=== PATIENT | male | born 1965 | race Caucasian/White ===

== ENCOUNTER → 2023-12-22 09:24 | Outpatient (REF) | payer OTHER, SELFPAY | LOC: WDC 09:24 | PROVIDERS: ATTENDING PHYSICIAN Family Medicine; FAMILY PHYSICIAN Student in an Organized Health Care Education/Training Program | DX: M79.621 Pain in right upper arm (principal); N64.4 Mastodynia | CPT/HCPCS: 76642; 77062; 77066 ==

== ENCOUNTER 2024-02-11 17:34 | Emergency (ER) | payer OTHER, SELFPAY ==
[2024-02-11 17:42] VITALS: BP 135/88
[2024-02-11 19:25] VITALS: BMI 29.2
--- NOTE | 2024-02-11 19:33 | ED.GENMED ---
History of Present Illness
General
Chief Complaint: Chest Pain
Source: patient
Exam Limitations: none
Time Seen by Provider: 02/11/24 19:04
Travel History
Have you had any contact with someone who has COVID-19?: No
Do you have any symptoms of coronavirus? Fever > 100 degrees, chills, cough, shortness of breath, sore throat, loss of taste or smell, muscle aches, or headache?: No
History of Present Illness
History of Present Illness:
This is a 58 year old male that comes in with c/o right sided chest pain. States that he started Virta with is medically managed and is like Keto diet. States that he started this about 5 weeks ago. States that he noticed that he is having an
Irregular heart beat and his heart is just taking off. States that he did wear a Holter monitor and dropped it off yesterday at the [employer]. Sates that in the past couple of days he felt that he had increased right sided chest discomfort.
States that yesterday he was walking around in the store and his heart rate just took off. Today he started with the right sided chest pain and it moved up into the right neck and back. States that he does feel SOB with the Increased heart rate.
States that he also has a headache and some epigastric discomfort. Denies any fever, chills, abd pain, nausea, vomiting, diarrhea, dizziness, urinary burning.
Past History
Past History
ED Past Medical History: Cancer (Skin), GERD, HTN, Psychiatric (Anxiety), Other (Tachycardia on a beta shola, gout) and Other (DVT/Pulmonary embolus 1-1/2 years ago, recent B12 deficiency, BPH, Sleep apnea, DDD, Tremors right hand, TMJ)
ED Past Surgical History: Orthopedic (Right hammer toe) and Other (Anal stricture with sphincterotomy 1987, IVC fliter and then had removed, Hiatal hernia repaired, right eye surgery, ); Negative Cholecystectomy
Social History
Tobacco: Non-smoker
Alcohol: Occasional
Drug: None
Personal:
Living: with family
Employment: Employed
Family History
Family History: Other (Father with prostate cancer)
Review of Systems
Review of Systems
All Other Systems: ROS reviewed and negative except as documented in HPI and ROS
Constitutional: Reports no symptoms; Denies fever or chills
EENT: Reports no symptoms
Respiratory: Reports trouble breathing; Denies cough
Cardiac: Reports chest pain (right sided)
ABD/GI: Reports other (Epigastric discomfort); Denies abdominal pain, nausea, vomiting or diarrhea
: Reports no symptoms; Denies dysuria, frequency or urgency
Musculoskeletal: Reports no symptoms
Skin: Reports no symptoms
Neurological: Reports headache; Denies dizzy
Psychiatric: Reports no symptoms
Phy Exam
General Physical Exam
General Presentation: no apparent distress
General age: appears stated age
General Skin: warm and dry
General Habitus: normal
General Mental: alert
General Hydration: dry mucous membranes
ENT Exam
ENT Exam: TM's normal, pharynx normal and neck supple
Eye Exam
Eye Exam: EOMI
Cardiovascular Exam
Cardiovascular Exam: regular rate/rhythm, no edema, no murmur and normal peripheral pulses
Pulmonary Exam
Pulmonary Exam: lungs clear, no respiratory distress, no rales, chest non tender, no crackles, no rhonchi, no wheezing and no cough
Gastrointestinal Exam
Gastrointestinal Exam: normal bowel sounds, non tender, soft, no organomegaly, no pulsatile mass and non distended
Musculoskeletal Exam
Musculoskeletal Exam: full ROM and no edema
Skin Exam
Skin Exam: normal color, warm/dry, no rash and no petechia
Psychiatric Exam
Psychiatric Exam: normal mood/affect
Scores
Heart Score for Chest Pain Patients
STEMI patient?: Not applicable
Course
Orders/Labs/Results
Orders:
Orders
02/11/24 17:43
EKG [Electrocardiogram (*1)] Urgent
Reason for Study: Chest Pain
EKG- Treatment ONCE
02/11/24 19:33
CR Chest - 2 Views Urgent
Comment:
Reason For Exam: chest pain right sided, SOB
02/11/24 19:36
Comprehensive Metabolic Panel Urgent
D-Dimer Urgent
Troponin I Urgent
02/11/24 19:37
Complete Blood Count/With Diff Urgent
02/11/24 19:38
Pantoprazole [Protonix IV] 40 mg IV NOW STA
02/11/24 22:26
Troponin I Urgent
Abnormal Lab Results
02/11/24
19:36
Sodium 133 L mmol/L
(135-145)
02/11/24 19:37
02/11/24 19:36
Sodium slightly low. D-dimer <0.27, Troponin <0.012
Vital Signs
Initial and Last Documented VS:
Initial Vital Signs
Temp Pulse Resp BP Pulse Ox
98.4 F 91 18 135/88 98
02/11/24 17:42 02/11/24 17:42 02/11/24 17:42 02/11/24 17:42 02/11/24 17:42
Last Documented Vital Signs
Temp Pulse Resp BP Pulse Ox
98.4 F 79 18 126/71 95
02/11/24 17:42 02/11/24 22:00 02/11/24 22:00 02/11/24 22:00 02/11/24 22:00
MDM/Problems Addressed
Differential Diagnosis Includes:
PE, Costochondritis,
MDM/Problems Addressed:
This is a 58 year old male that comes in with multiple complaints. States that he has been having and irregular heart rate and right sided chest pain. Patient recently started on a medication that is medically followed called Otf to help with
weight loss. States that he felt his right sided chest pain increased today and went up into his neck.
Will get lab, Chest x-ray.
Back into see patient. Explained that his blood work shows that her Sodium is slightly low. His D-dimer is normal and patient is taking Eliquis. Both Troponin are negative. This maybe Costochondritis or anxiety. Patient to follow up with his
cloth bleaching range back tender. Patient to use Tylenol 1000mg every 6 hours for pain. Encouraged patient that he may want to do Weight watchers as this is the most normal diet to help loss weight and it healthy. Patient to return with any concerns.
Chronic conditions affecting care:
History of PE
Acute Exacerbation and/or Progression of Chronic Illness:
history of PE
*Radiology
Radiology exam reviewed: radiology read reviewed (Chest- No acute cardiopulmonary process)
*Pulse Oximetry
Patient hypoxic: no
*EKG
Interpreted by ED Provider?: Yes
Heart Rate: 67
Rate: normal
Rhythm: sinus
[place]: left axis deviation
Interval: normal interval
QRS Pattern: normal QRS
Ischemia: no ischemia
*[employer] Interpretation
Rate: normal
Heart Rate: 86
Rhythm: sinus
*Critical Care Note
Total Time (30-74mins, 75-104mins- exclusive of procedures): Not Applicable
ED Attending Note
-
Portions of this chart may have been created with voice recognition software.� Occasional wrong word or��sound alike� substitutions may have occurred due to the inherent limitations of voice recognition software.
Discharge Plan
Departure
Patient Disposition: Home (Routine Discharge)
Date of Disposition: 02/11/24
Time of Disposition: 23:04
Patient with high blood pressure during this ER visit?: No
Condition: Good
Covid-19: Not Applicable
Discharge Problem:
Right-sided chest pain
Instructions: Costochondritis (DC), Chest Pain PCP Follow Up
Prescriptions:
No Action
Eliquis 5 MG tablet
5 mg PO BID
metoprolol tartrate 25 MG tablet
25 mg PO BID
mometasone [Nasonex] 17 GM spray,non-aerosol
2 spray intranasal HS
armodafinil [Nuvigil] 150 MG tablet
150 mg PO DAILY
tamsulosin 0.4 MG capsule
0.4 mg PO DAILY
allopurinol 100 MG tablet
300 mg PO DAILY
Tums:
1,000 mg PO PRN PRN (Reason: acid reflux )
Metamucil Fiber Singles 1 PACKET powder in packet
1 packet PO BID
sucralfate [Carafate] 1 GM tablet
1 gm PO BID
colchicine 0.6 MG capsule
0.6 mg PO DAILY
cyanocobalamin (vitamin B-12) 1,000 MCG tablet
1,000 mcg PO DAILY
zinc gluconate 50 MG tablet
50 mg PO DAILY
docosahexaenoic acid-epa 1 CAP capsule
3 cap PO DAILY
Centrum Silver 1 EACH tablet
1 ea PO DAILY
calcium citrate-vitamin D3 [Citracal + D Maximum] 1 EACH tablet
1 ea PO BID
coenzyme Q10 50 MG tablet,chewable
100 mg PO DAILY
guaifenesin [Mucinex] 600 MG tablet extended release 12hr
600 mg PO DAILY
ascorbic acid (vitamin C) 500 MG capsule
500 mg PO BID
Cholecalciferol (Vitamin D3) [Vitamin D3] 50 MCG Capsule
50 mcg PO BID
D-Ribose
7 g PO DAILY
Daily Probiotic
2 cap PO BID
Essential Isabel[place]
4.7 g PO DAILY
Luiz Tart Gomes Capsule
1 cap PO BID
Humann Super Beets
5 g PO DAILY
Lectin Shield
2 cap PO BID
Total Restore
3 cap PO DAILY
Vital Reds Antioxidant Powder
3.8 g PO DAILY
acetaminophen 325 MG tablet
650 mg PO Q4HPRN PRN (Reason: mild pain) Qty: 1 0RF
ibuprofen 200 MG tablet
400 - 600 mg PO Q6HPRN PRN (Reason: moderate pain) Qty: 1 0RF
oxycodone 5 MG tablet
5 mg PO Q4HPRN PRN (Reason: breakthrough/severe pain) Qty: 15 0RF
famotidine 20 mg Tablet
20 mg PO DAILY
simethicone 80 mg Tablet,Chewable
50 mg PO ACHS
Referrals:
NONE,* [Active] -
Activity Restrictions/Additional Instructions:
As discussed, your blood work shows that your sodium is slightly low. Otherwise your labs are normal. Your D-dimer is negative and both Troponin are normal. Please follow up with the Family doctor for recheck. Please increases your water intake to
8-8oz glasses daily. You may use Tylenol 1000mg every 6 hours for pain. IF YOU HAVE INCREASED OR CHANGING PAIN, OR YOU HAVE ANY OTHER CONCERNS PLEASE RETURN TO THE EMERGENCY ROOM.
Interventions
Interventions:
*Risk Screen - Suicide Last Done: 02/11/24 19:25
*General Assessment Last Done: 02/11/24 19:25
*Neglect/Abuse Screening Last Done: 02/11/24 19:25
*ED COVID-19 Vaccine History Last Done: 02/11/24 19:25
ED- Cardiac Assessment Last Done: 02/11/24 19:25
Discharge Date and Time
Print Language: IRISH
[2024-02-11 19:34] VITALS: BP 135/70
[2024-02-11 19:41] LABS: % Basophils 1.1 % (0-2); % Eosinophils 3.2 % (0-6); % Immature Granulocytes 0.4 % (0-0.5); % Lymphocytes 30.1 % (20.5-51.1); % Monocytes 5.2 % (1.7-9.3); Absolute Basophils 0.1 10^3/uL (0-0.2); Absolute Eosinophils 0.2 10^3/uL (0-0.7); Absolute Lymphocytes 1.7 10^3/uL (1.2-3.4); Absolute Monocytes 0.3 10^3/uL (0.1-0.6); Absolute Neutrophils 3.4 10^3/uL (1.4-6.5); Hematocrit 46.1 % (39.0-52.0); Hemoglobin 16.3 g/dL (13.0-18.0); Mean Corp Hgb Conc. 35.4 g/dL (33.0-37.0); Mean Corpuscular Hgb 30.5 pg (27.0-31.0); Mean Corpuscular Volume 86.3 fL (80.0-94.0); Mean Platelet Volume 9.5 fL (7.4-10.4); Nucleated Red Blood Cells % 0 % (-); Platelet Count 196 10^3/uL (130-400); Red Blood Cell Count 5.34 10^6/uL (4.70-6.10); Red Cell Dist. Width 13.5 % (11.5-14.5); White Blood Cell Count 5.6 10^3/uL (4.8-10.8)
[2024-02-11 19:56] LABS: ALT (SGPT) 23 U/L (0-50); AST (SGOT) 25 U/L (17-59); Albumin 4.8 g/dl (3.5-5.0); Alkaline Phosphatase 60 U/L (38-126); Blood Urea Nitrogen 17 mg/dl (9-20); Calcium 10.1 mg/dl (8.4-10.2); Carbon Dioxide 22 mmol/L (22-30); Chloride 102 mmol/L (98-107); Estimated Creatinine Clearance 98 ml/min; Glucose 88 mg/dl (70-99); Potassium 4.1 mmol/L (3.5-5.1); Sodium 133 mmol/L (135-145); Total Bilirubin 1.2 mg/dl (0.2-1.3); Total Protein 7.5 g/dl (6.3-8.2); eGFR > 60.00
[2024-02-11 19:59] LABS: D-Dimer < 0.27 ug/mlFEU (0.00-0.50)
[2024-02-11 20:00] VITALS: BP 135/69
[2024-02-11] MEDS: PROTONIX IV 40 MG IV (20:05)
[2024-02-11 20:08] LABS: Troponin I < 0.012 ng/ml
[2024-02-11 21:00] VITALS: BP 125/75
[2024-02-11 22:00] VITALS: BP 126/71
[2024-02-11 22:56] LABS: Troponin I < 0.012 ng/ml
[2024-02-11 23:00] VITALS: BP 123/71
== END 2024-02-11 23:18 | disposition home or self-care (01) ==
LOC: EMR 17:34
PROVIDERS: Clinical Nurse Specialist Family Health; EMERGENCY PHYSICIAN Emergency Medicine; FAMILY PHYSICIAN Student in an Organized Health Care Education/Training Program
DX: R07.89 Other chest pain (principal)
CPT/HCPCS: 99285; 96374; 71046; 80053; 84484; 85025; 85379; 93005

== ENCOUNTER → 2024-04-13 07:47 | Outpatient (REF) | payer OTHER, SELFPAY | LOC: RAD 07:47 | PROVIDERS: ATTENDING PHYSICIAN Nurse Practitioner Family; FAMILY PHYSICIAN Student in an Organized Health Care Education/Training Program | DX: R07.1 Chest pain on breathing (principal) | CPT/HCPCS: 71275; Q9967 ==

== ENCOUNTER → 2024-06-02 22:00 | Emergency (ER) | payer OTHER, SELFPAY ==
[2024-06-02 22:08] VITALS: BP 131/78
[2024-06-02 22:32] VITALS: BP 131/73
--- NOTE | 2024-06-02 22:57 | ED.GENMED ---
History of Present Illness
General
Chief Complaint: Cold/Flu/URI Symptoms
Source: patient
Exam Limitations: none
Time Seen by Provider: 06/02/24 22:27
Nursing documentation reviewed up to this point in time: agreed with
History of Present Illness
History of Present Illness:
59-year-old male with history of GERD, HTN, hypercoagulable state with history of DVT and PE on Eliquis, anxiety/depression, presents stating 'I may be early stages of COVID.' States 2 evenings ago he developed a 'chest cold' and nasal congestion,
sore throat. He has had paroxysms of cough. He tested COVID-negative at home yesterday and again earlier today. He denies fever, chills, N/V/D. He denies abdominal pain. He has had intermittent chest pains for the past 2 days. The chest pains
are sharp and stabbing initially in the right side of his chest but today he felt some in the left side of his chest. No known sick contacts. He was in [place] 1 week ago.
He saw his PCP yesterday and was told to take Robitussin.
Past History
Past History
ED Past Medical History: Cancer (Skin), GERD, HTN, Psychiatric (Anxiety/depression), Other (Tachycardia on a beta shola, gout) and Other (DVT/Pulmonary embolus 1-1/2 years ago, recent B12 deficiency, BPH, Sleep apnea, DDD, Tremors right hand, TMJ)
ED Past Surgical History: Orthopedic (Right hammer toe) and Other (Anal stricture with sphincterotomy 1987, IVC fliter and then had removed, Hiatal hernia repaired, right eye surgery, ); Negative Cholecystectomy
Social History
Tobacco: Non-smoker
Alcohol: Occasional
Drug: None
Personal:
Living: with family
Employment: Employed
Family History
Family History: Other (Father with prostate cancer)
Review of Systems
Review of Systems
Allergies reviewed?: Yes
All Other Systems: ROS reviewed and negative except as documented in HPI and ROS
Constitutional: Denies fever, fatigue or chills
EENT: Reports sore throat; Denies runny nose
Respiratory: Reports cough; Denies trouble breathing
Cardiac: Reports chest pain; Denies diaphoresis, palpitations or syncope
ABD/GI: Denies abdominal pain, nausea, vomiting or diarrhea
: Denies dysuria or difficulty voiding
Musculoskeletal: Reports no symptoms
Skin: Reports no symptoms
Neurological: Denies dizzy, headache, weakness or numbness
Phy Exam
Physical Exam
Physical Exam:
GENERAL: No acute distress. A&Ox3.
CONSTITUTIONAL: Afebrile.
EYES: PERRL, conjunctivae normal
Neck: Supple
ENMT: moist mucus membranes, Pharynx nl
RESPIRATORY: Regular respirations, nonlabored, lungs clear.
CARDIOVASCULAR: Regular rate and rhythm, no murmurs, no rubs.
GI: Soft, nontender, normal BS
MUSCULOSKELETAL: Moves with ease. Well perfused.
SKIN: Warm, dry, pink
PSYCH: Normal mood and affect. Well kept, interactive and appropriate
NEUROLOGIC: Awake, alert and oriented. No focal neurological deficits
Course
Orders/Labs/Results
Orders:
Orders
06/02/24 22:17
Electrocardiogram (*1) Urgent
Reason for Study: Chest Pain
Other Reason for Exam: chest congestion
EKG- Treatment ONCE
06/02/24 22:54
CR Chest - 2 Views Urgent
Comment:
Reason For Exam: chest pain
06/02/24 23:07
COVID-19 Antigen Urgent
Source: Nasal Swab
Complete Blood Count/With Diff Urgent
Comprehensive Metabolic Panel Urgent
Troponin I Urgent
Abnormal Lab Results
06/02/24
23:07
WBC 4.5 L 10^3/uL
(4.8-10.8)
Monocytes % 10.2 H %
(1.7-9.3)
Eosinophils % 9.5 H %
(0-6)
Chloride 108 H mmol/L
(98-107)
06/02/24 23:07
06/02/24 23:07
Vital Signs
Initial and Last Documented VS:
Initial Vital Signs
Temp Pulse Resp BP Pulse Ox
98.7 F 80 18 131/78 97
06/02/24 22:08 06/02/24 22:08 06/02/24 22:08 06/02/24 22:08 06/02/24 22:08
Last Documented Vital Signs
Temp Pulse Resp BP Pulse Ox
98.7 F 62 13 121/73 98
06/02/24 22:08 06/02/24 23:30 06/02/24 23:30 06/02/24 23:30 06/02/24 23:30
MDM/Problems Addressed
Differential Diagnosis Includes:
COVID, pneumonia, viral URI
MDM/Problems Addressed:
59-year-old male with history of GERD, HTN, hypercoagulable state with history of DVT and PE on Eliquis, anxiety/depression, presents stating 'I may be early stages of COVID.' States 2 evenings ago he developed a 'chest cold' and nasal congestion,
sore throat. He has had paroxysms of cough. He tested COVID-negative at home yesterday and again earlier today. He denies fever, chills, N/V/D. He denies abdominal pain. He has had intermittent chest pains for the past 2 days. The chest pains
are sharp and stabbing initially in the right side of his chest but today he felt some in the left side of his chest. No known sick contacts. He was in [place] 1 week ago.
He saw his PCP yesterday and was told to take Robitussin.
CBC with no clinically significant abnormality
CMP normal
COVID-negative
EKG: NSR, left axis deviation, no change
Chest xray: NAD, no change from previous
Troponin WNL
Discussed results with pt.
Most likely viral URI
*EKG
EKG Intrepretation Date: 06/02/24
Interpretation: abnormal
Comparison EKG: no changes
Rate: normal
Rhythm: sinus
[place]: left axis deviation
Interval: normal interval
QRS Pattern: normal QRS
Ischemia: no ischemia
*Critical Care Note
Total Time (30-74mins, 75-104mins- exclusive of procedures): Not Applicable
ED Attending Note
-
Portions of this chart may have been created with voice recognition software.� Occasional wrong word or��sound alike� substitutions may have occurred due to the inherent limitations of voice recognition software.
Discharge Plan
Departure
Patient Disposition: Home (Routine Discharge)
Date of Disposition: 06/02/24
Time of Disposition: 23:46
Patient with high blood pressure during this ER visit?: No
Condition: Good
Discharge Problem:
Viral upper respiratory infection
Instructions: Viral Upper Respiratory Infection, Adult (DC)
Prescriptions:
No Action
Eliquis 5 MG tablet
5 mg PO BID
metoprolol tartrate 25 MG tablet
25 mg PO BID
mometasone [Nasonex] 17 GM spray,non-aerosol
2 spray intranasal HS
armodafinil [Nuvigil] 150 MG tablet
150 mg PO DAILY
tamsulosin 0.4 MG capsule
0.4 mg PO DAILY
allopurinol 100 MG tablet
300 mg PO DAILY
Tums:
1,000 mg PO PRN PRN (Reason: acid reflux )
Metamucil Fiber Singles 1 PACKET powder in packet
1 packet PO BID
sucralfate [Carafate] 1 GM tablet
1 gm PO BID
colchicine 0.6 MG capsule
0.6 mg PO DAILY
cyanocobalamin (vitamin B-12) 1,000 MCG tablet
1,000 mcg PO DAILY
zinc gluconate 50 MG tablet
50 mg PO DAILY
docosahexaenoic acid-epa 1 CAP capsule
3 cap PO DAILY
Centrum Silver 1 EACH tablet
1 ea PO DAILY
calcium citrate-vitamin D3 [Citracal + D Maximum] 1 EACH tablet
1 ea PO BID
coenzyme Q10 50 MG tablet,chewable
100 mg PO DAILY
guaifenesin [Mucinex] 600 MG tablet extended release 12hr
600 mg PO DAILY
ascorbic acid (vitamin C) 500 MG capsule
500 mg PO BID
Cholecalciferol (Vitamin D3) [Vitamin D3] 50 MCG Capsule
50 mcg PO BID
D-Ribose
7 g PO DAILY
Daily Probiotic
2 cap PO BID
Essential [place]
4.7 g PO DAILY
Luiz Tart Gomes Capsule
1 cap PO BID
Humann Super Beets
5 g PO DAILY
Lectin Shield
2 cap PO BID
Total Restore
3 cap PO DAILY
Vital Reds Antioxidant Powder
3.8 g PO DAILY
acetaminophen 325 MG tablet
650 mg PO Q4HPRN PRN (Reason: mild pain) Qty: 1 0RF
ibuprofen 200 MG tablet
400 - 600 mg PO Q6HPRN PRN (Reason: moderate pain) Qty: 1 0RF
oxycodone 5 MG tablet
5 mg PO Q4HPRN PRN (Reason: breakthrough/severe pain) Qty: 15 0RF
famotidine 20 mg Tablet
20 mg PO DAILY
simethicone 80 mg Tablet,Chewable
50 mg PO ACHS
Referrals:
Chau Reese, DO [Family Provider] - As needed
Activity Restrictions/Additional Instructions:
As we discussed, nothing worrisome in your workup here today.
You most likely have a viral upper respiratory infection
Interventions
Interventions:
*General Assessment Last Done: 06/02/24 23:05
*Neglect/Abuse Screening Last Done: 06/02/24 23:05
ED- Fall Risk Assessment Last Done: 06/02/24 23:05
*ED COVID-19 Vaccine History Last Done: 06/02/24 23:05
ED- Pulmonary Assessment Last Done: 06/02/24 23:05
Discharge Date and Time
Print Language: NEPALI
[2024-06-02 23:00] VITALS: BP 131/73
[2024-06-02 23:13] LABS: % Basophils 1.5 % (0-2); % Eosinophils 9.5 % (0-6); % Immature Granulocytes 0.4 % (0-0.5); % Lymphocytes 32.3 % (20.5-51.1); % Monocytes 10.2 % (1.7-9.3); % Neutrophils 46.1 % (42.2-75.2); Absolute Basophils 0.1 10^3/uL (0-0.2); Absolute Eosinophils 0.4 10^3/uL (0-0.7); Absolute Lymphocytes 1.5 10^3/uL (1.2-3.4); Absolute Monocytes 0.5 10^3/uL (0.1-0.6); Absolute Neutrophils 2.1 10^3/uL (1.4-6.5); Hematocrit 43.5 % (39.0-52.0); Hemoglobin 14.9 g/dL (13.0-18.0); Mean Corp Hgb Conc. 34.3 g/dL (33.0-37.0); Mean Corpuscular Hgb 30.2 pg (27.0-31.0); Mean Corpuscular Volume 88.1 fL (80.0-94.0); Mean Platelet Volume 9.4 fL (7.4-10.4); Nucleated Red Blood Cells % 0 % (-); Platelet Count 185 10^3/uL (130-400); Red Blood Cell Count 4.94 10^6/uL (4.70-6.10); Red Cell Dist. Width 13.9 % (11.5-14.5); White Blood Cell Count 4.5 10^3/uL (4.8-10.8)
[2024-06-02 23:26] VITALS: BMI 28.9
[2024-06-02 23:30] VITALS: BP 121/73
[2024-06-02 23:30] LABS: ALT (SGPT) 19 U/L (0-50); AST (SGOT) 23 U/L (17-59); Albumin 4.2 g/dl (3.5-5.0); Alkaline Phosphatase 69 U/L (38-126); Blood Urea Nitrogen 19 mg/dl (9-20); Calcium 9.2 mg/dl (8.4-10.2); Carbon Dioxide 23 mmol/L (22-30); Chloride 108 mmol/L (98-107); Estimated Creatinine Clearance 79 ml/min; Glucose 90 mg/dl (70-99); Potassium 4.5 mmol/L (3.5-5.1); Sodium 140 mmol/L (135-145); Total Bilirubin 0.7 mg/dl (0.2-1.3); Total Protein 6.7 g/dl (6.3-8.2); eGFR > 60.00
[2024-06-02 23:34] LABS: COVID-19 Antigen Negative (Negative)
[2024-06-02 23:36] LABS: Troponin I < 0.012 ng/ml
== END | disposition home or self-care (01) ==
LOC: EMR 22:00
PROVIDERS: Registered Nurse; EMERGENCY PHYSICIAN Emergency Medicine; FAMILY PHYSICIAN Family Medicine
DX: J06.9 Acute upper respiratory infection, unspecified (principal); K21.9 Gastro-esophageal reflux disease without esophagitis; I10 Essential (primary) hypertension; Z86.718 Personal history of other venous thrombosis and embolism; Z86.711 Personal history of pulmonary embolism; Z11.52 Encounter for screening for COVID-19
CPT/HCPCS: 99285; 71046; 80053; 84484; 85025; 87811; 93005

== ENCOUNTER 2024-08-20 18:41 | Emergency (ER) | payer OTHER, SELFPAY ==
[2024-08-20] VITALS (8 sets, daily range): BP systolic 122–143; BP diastolic 63–90; BMI 31.0
[2024-08-20 19:17] LABS: % Basophils 1.4 % (0-2); % Eosinophils 5.4 % (0-6); % Immature Granulocytes 0.2 % (0-0.5); % Lymphocytes 37.4 % (20.5-51.1); % Monocytes 5.8 % (1.7-9.3); % Neutrophils 49.8 % (42.2-75.2); Absolute Basophils 0.1 10^3/uL (0-0.2); Absolute Eosinophils 0.3 10^3/uL (0-0.7); Absolute Lymphocytes 2.2 10^3/uL (1.2-3.4); Absolute Monocytes 0.3 10^3/uL (0.1-0.6); Absolute Neutrophils 2.9 10^3/uL (1.4-6.5); Hemoglobin 15.8 g/dL (13.0-18.0); Mean Corp Hgb Conc. 34.3 g/dL (33.0-37.0); Mean Corpuscular Hgb 29.4 pg (27.0-31.0); Mean Corpuscular Volume 85.7 fL (80.0-94.0); Mean Platelet Volume 9.4 fL (7.4-10.4); Nucleated Red Blood Cells % 0 % (-); Platelet Count 179 10^3/uL (130-400); Red Blood Cell Count 5.37 10^6/uL (4.70-6.10); Red Cell Dist. Width 14.2 % (11.5-14.5); White Blood Cell Count 5.9 10^3/uL (4.8-10.8)
[2024-08-20 19:41] LABS: Troponin I < 0.012 ng/ml
[2024-08-20 19:46] LABS: ALT (SGPT) 25 U/L (0-50); AST (SGOT) 24 U/L (17-59); Albumin 4.7 g/dl (3.5-5.0); Alkaline Phosphatase 57 U/L (38-126); Blood Urea Nitrogen 16 mg/dl (9-20); Calcium 10.5 mg/dl (8.4-10.2); Carbon Dioxide 26 mmol/L (22-30); Chloride 103 mmol/L (98-107); Glucose 96 mg/dl (70-99); Potassium 4.4 mmol/L (3.5-5.1); Sodium 141 mmol/L (135-145); Total Protein 7.4 g/dl (6.3-8.2); eGFR > 60.00
--- NOTE | 2024-08-20 21:01 | ED.GENMED ---
History of Present Illness
<Iris Dockery PA-C - Last Filed: 08/20/24 23:54>
General
Chief Complaint: Chest Pain
Source: patient
Exam Limitations: none
Time Seen by Provider: 08/20/24 20:01
Nursing documentation reviewed up to this point in time: agreed with
History of Present Illness
History of Present Illness:
59-year-old male with history hypertension, PE currently anticoagulated on Eliquis presenting to the emergency department for evaluation of right-sided chest pain. Patient states that around noon today he noticed pain in his right upper chest which
radiated around to his right shoulder and right upper back. Pain has been intermittent since onset. Patient did report some mild worsening in symptoms when climbing the stairs. Symptoms are not pleuritic in nature. Patient also endorses a single
pain just below his sternum along with a singular pain in his mid back. Both of those has resolved.
Patient denies any associated shortness of breath, dizziness/lightheadedness, numbness/tingling, pain or swelling in lower extremities.
Patient does note that he has similar symptoms a few times a year. 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
Patient currently anticoagulated on 5 mg Eliquis twice a day. He is compliant with medication. No recent travel, surgeries.
Past History
<Iris Dockery PA-C - Last Filed: 08/20/24 23:54>
Past History
ED Past Medical History: Cancer (Skin), GERD, HTN, Psychiatric (Anxiety/depression), Other (Tachycardia on a beta shola, gout) and Other (DVT/Pulmonary embolus 1-1/2 years ago, recent B12 deficiency, BPH, Sleep apnea, DDD, Tremors right hand, TMJ)
ED Past Surgical History: Orthopedic (Right hammer toe) and Other (Anal stricture with sphincterotomy 1987, IVC fliter and then had removed, Hiatal hernia repaired, right eye surgery, ); Negative Cholecystectomy
Social History
Tobacco: Non-smoker
Alcohol: Occasional
Drug: None
Personal:
Living: with family
Employment: Employed
Family History
Family History: Other (Father with prostate cancer)
Review of Systems
<Iris Dockery PA-C - Last Filed: 08/20/24 23:54>
Review of Systems
Allergies reviewed?: Yes
All Other Systems: ROS reviewed and negative except as documented in HPI and ROS
Phy Exam
<Iris Dockery PA-C - Last Filed: 08/20/24 23:54>
Physical Exam
Physical Exam:
Vitals: Patient's vital signs are stable. Afebrile
General: Patient is well appearing, no acute distress
Skin: Warm and dry, no rashes or lesions
Head: Normocephalic, atraumatic
Eyes: Sclera nonicteric. EOMs intact. No nystagmus.
Throat: Protecting airway
Neck: Normal ROM, no cervical spine tenderness, no meningismus
Cardiac: Regular rate and rhythm, no murmurs. Mild tenderness palpation in right upper chest just inferior to clavicle. Mild tenderness overlying right scapula with no obvious deformity, bruising, or rash.
Pulm: Normal respiratory effort, no wheezes, rales, rhonchi heard on exam.
Abdomen: No abdominal tenderness.
Extremities: No evidence of cyanosis or edema. Negative Homans' sign bilaterally. Great distal pulses.
Neuro: Grossly intact.
Psychiatric: Normal affect.
Scores
<Iris Dockery PA-C - Last Filed: 08/20/24 23:54>
Heart Score for Chest Pain Patients
STEMI patient?: No
History: Slightly or Non-Suspicious
ECG: Normal
Age: >45 - <65 years
Risk Factors: 1 or 2 Risk Factors
Troponin: </= Normal Limit
Heart Score for Chest Pain Patients: 2
Heart Score Risk: 2.5% MACE over next 6 weeks
Course
<Iris Dockery PA-C - Last Filed: 08/20/24 23:54>
Orders/Labs/Results
Orders:
Orders
08/20/24 18:41
EKG [Electrocardiogram (*1)] Urgent
Reason for Study: Chest Pain
EKG- Treatment ONCE
08/20/24 19:10
Complete Blood Count/With Diff Urgent
Comprehensive Metabolic Panel Urgent
Troponin I Urgent
08/20/24 20:59
CR Chest - 2 Views Urgent
Comment:
Reason For Exam: right upper chest/ scapular pain
08/20/24 21:10
Electrocardiogram (*1) Urgent
Reason for Study: Chest Pain
EKG- Treatment ONCE
08/20/24 21:25
Troponin I Urgent
Abnormal Lab Results
08/20/24
19:10
Calcium 10.5 H mg/dl
(8.4-10.2)
08/20/24 19:10
08/20/24 19:10
Vital Signs
Initial and Last Documented VS:
Initial Vital Signs
Temp Pulse Resp BP Pulse Ox
98.1 F 76 18 143/90 97
08/20/24 18:47 08/20/24 18:47 08/20/24 18:47 08/20/24 18:47 08/20/24 18:47
Last Documented Vital Signs
Temp Pulse Resp BP Pulse Ox
98.1 F 59 12 122/63 96
08/20/24 18:47 08/20/24 23:00 08/20/24 23:00 08/20/24 23:00 08/20/24 23:00
<Frank Zurita DO - Last Filed: 08/20/24 22:11>
Orders/Labs/Results
Orders:
Orders
08/20/24 18:41
EKG [Electrocardiogram (*1)] Urgent
Reason for Study: Chest Pain
EKG- Treatment ONCE
08/20/24 19:10
Complete Blood Count/With Diff Urgent
Comprehensive Metabolic Panel Urgent
Troponin I Urgent
08/20/24 20:59
CR Chest - 2 Views Urgent
Comment:
Reason For Exam: right upper chest/ scapular pain
08/20/24 21:10
Electrocardiogram (*1) Urgent
Reason for Study: Chest Pain
EKG- Treatment ONCE
08/20/24 21:25
Troponin I Urgent
Abnormal Lab Results
08/20/24
19:10
Calcium 10.5 H mg/dl
(8.4-10.2)
08/20/24 19:10
08/20/24 19:10
Vital Signs
Initial and Last Documented VS:
Initial Vital Signs
Temp Pulse Resp BP Pulse Ox
98.1 F 76 18 143/90 97
08/20/24 18:47 08/20/24 18:47 08/20/24 18:47 08/20/24 18:47 08/20/24 18:47
Last Documented Vital Signs
Temp Pulse Resp BP Pulse Ox
98.1 F 59 12 122/63 96
08/20/24 18:47 08/20/24 23:00 08/20/24 23:00 08/20/24 23:00 08/20/24 23:00
<Iris Dockery PA-C - Last Filed: 08/20/24 23:54>
MDM/Problems Addressed
Differential Diagnosis Includes:
Not limited to: Muscular strain, costochondritis, pericarditis, myocarditis, GERD, spontaneous pneumothorax, do not suspect ACS or PE, etc.
MDM/Problems Addressed:
59-year-old male presenting to the emergency department with atypical chest pain. Vital stable. Patient very well-appearing, in no apparent distress. Heart regular rate and rhythm. Lungs clear bilaterally. He does have mild reproducible
tenderness in right upper chest wall and right scapular region. Patient has no clinical evidence of DVT on exam. Patient is perfusing well with palpable and equal distal pulses bilaterally. Initial EKG without any acute ischemic changes. Labs
were initiated in triage with no clinically significant abnormalities. Mild hypercalcemia noted. Initial troponin undetectable. Although patient does have a history of PE�he is compliant with his Eliquis. Vital signs today not consistent with
PE. Patient without any associated shortness of breath or pleuritic component to pain�will not obtain D-dimer as PE very unlikely. Given symptoms have been somewhat intermittent since onset earlier today�will repeat troponin. Will check chest
x-ray. Patient very stable without tearing back pain and stable systolic pressures between bilateral arms�do not suspect aortic dissection. Unsure exact etiology of pain�although given reproducible nature suspect possible musculoskeletal
component. Will closely monitor and reassess.
Chronic conditions affecting care:
Hypertension, history of PE
Acute Exacerbation and/or Progression of Chronic Illness:
N/A
<Iris Dockery PA-C - Last Filed: 08/20/24 23:54>
*Radiology
Radiology exam reviewed: preliminary read by ED provider and radiology read reviewed
*Pulse Oximetry
Patient hypoxic: no
*EKG
Interpreted by ED Provider?: Yes
EKG Intrepretation Date: 08/20/24
Interpretation: normal
Comparison EKG: no changes
Heart Rate: 62
Rate: normal
Rhythm: sinus
[place]: normal axis
Ischemia: no ischemia
*Children'S Attendant Interpretation
Rate: normal
Interpretation: normal
Heart Rate: 74
Rhythm: sinus
*Critical Care Note
Total Time (30-74mins, 75-104mins- exclusive of procedures): Not Applicable
Data Reviewed
Source: previous hospital records (Emergency department visits from 08/29/2023 and 02/11/2024)
Further Testing Considered But Not Given:
D-dimer�although given pain is not pleuritic and patient is currently anticoagulated on Eliquis with normal vital signs�do not suspect PE
<Iris Dockery PA-C - Last Filed: 08/20/24 23:54>
Update Note
Update Note:
Update: Repeat troponin undetectable. Chest x-ray without any acute abnormalities. Patient has remained very well-appearing with stable vital signs. Troponin undetectable x 2. I think ACS is highly unlikely. No evidence for an unstable process
present at this time. Patient stable for discharge with return precautions, outpatient cardiology follow-up. Patient comfortable with plan. All questions answered. Patient seen with attending physician
ED Attending Note
<Iris Dockery PA-C - Last Filed: 08/20/24 23:54>
-
Portions of this chart may have been created with voice recognition software.� Occasional wrong word or��sound alike� substitutions may have occurred due to the inherent limitations of voice recognition software.
<Frank Zurita DO - Last Filed: 08/20/24 22:11>
ED Attending Note
Patient seen and examined by attending physician: Yes
I performed the substantive portion of visit, reviewed & personally made and approve the management plan that is documented in note by myself or IVONNE.: Yes
ED Attending Note:
59-year-old male who presents with pain to the right shoulder area rating toward the right neck. Patient states he has had this before but this seems just a little bit higher. It is a little worse when he moves. Started around noon today. No
fevers. No shortness of breath. No palpitations. Is anticoagulated and has been compliant with his meds. Exam: Awake and alert, no respiratory distress, no lower extremity edema. EKG and chest x-ray unremarkable. Labs unremarkable. Troponin x
2 unremarkable. Okay for discharge.
Discharge Plan
Departure
Patient Disposition: Home (Routine Discharge)
Date of Disposition: 08/20/24
Time of Disposition: 22:15
Patient with high blood pressure during this ER visit?: No
Discharge Problem:
Right-sided chest pain
Instructions: Chest pain
Prescriptions:
No Action
Eliquis 5 MG tablet
5 mg PO BID
metoprolol tartrate 25 MG tablet
25 mg PO BID
mometasone [Nasonex] 17 GM spray,non-aerosol
2 spray intranasal HS
armodafinil [Nuvigil] 150 MG tablet
150 mg PO DAILY
tamsulosin 0.4 MG capsule
0.4 mg PO DAILY
allopurinol 100 MG tablet
300 mg PO DAILY
Tums:
1,000 mg PO PRN PRN (Reason: acid reflux )
Metamucil Fiber Singles 1 PACKET powder in packet
1 packet PO BID
sucralfate [Carafate] 1 GM tablet
1 gm PO BID
colchicine 0.6 MG capsule
0.6 mg PO DAILY
cyanocobalamin (vitamin B-12) 1,000 MCG tablet
1,000 mcg PO DAILY
zinc gluconate 50 MG tablet
50 mg PO DAILY
docosahexaenoic acid-epa 1 CAP capsule
3 cap PO DAILY
Centrum Silver 1 EACH tablet
1 ea PO DAILY
calcium citrate-vitamin D3 [Citracal + D Maximum] 1 EACH tablet
1 ea PO BID
coenzyme Q10 50 MG tablet,chewable
100 mg PO DAILY
guaifenesin [Mucinex] 600 MG tablet extended release 12hr
600 mg PO DAILY
ascorbic acid (vitamin C) 500 MG capsule
500 mg PO BID
Cholecalciferol (Vitamin D3) [Vitamin D3] 50 MCG Capsule
50 mcg PO BID
D-Ribose
7 g PO DAILY
Daily Probiotic
2 cap PO BID
Essential [place]
4.7 g PO DAILY
Luiz Tart Gomes Capsule
1 cap PO BID
[place] Super Beets
5 g PO DAILY
Lectin Shield
2 cap PO BID
Total Restore
3 cap PO DAILY
Vital Reds Antioxidant Powder
3.8 g PO DAILY
acetaminophen 325 MG tablet
650 mg PO Q4HPRN PRN (Reason: mild pain) Qty: 1 0RF
ibuprofen 200 MG tablet
400 - 600 mg PO Q6HPRN PRN (Reason: moderate pain) Qty: 1 0RF
oxycodone 5 MG tablet
5 mg PO Q4HPRN PRN (Reason: breakthrough/severe pain) Qty: 15 0RF
famotidine 20 mg Tablet
20 mg PO DAILY
simethicone 80 mg Tablet,Chewable
50 mg PO ACHS
Referrals:
Chau Reese DO [Family Provider] -
Halle De La Torre DO [Active] - Next open appointment
Activity Restrictions/Additional Instructions:
RETURN TO THE EMERGENCY DEPARTMENT WITH ANY CHEST PAIN, SHORTNESS OF BREATH, LIGHTHEADEDNESS/DIZZINESS, SEVERE BACK PAIN, WORSENING IN CURRENT SYMPTOMS, OR ANY OTHER CONCERNS
-Continue to take all your medications as prescribed
-You can take Tylenol as needed for chest discomfort. Stay well-hydrated
-Follow-up with your design sales consultant for further evaluation/management.
Monitor your symptoms closely and return to the emergency department any acute worsening/new symptoms
Interventions
Interventions:
*Risk Screen - Suicide Last Done: 08/20/24 18:47
*General Assessment Last Done: 08/20/24 18:47
*Neglect/Abuse Screening Last Done: 08/20/24 18:47
ED- Fall Risk Assessment Last Done: 08/20/24 21:49
*ED COVID-19 Vaccine History Last Done: 08/20/24 20:10
*Nursing Disposition Last Done: 08/20/24 23:06
ED- Cardiac Assessment Last Done: 08/20/24 20:10
Discharge Date and Time
Discharge Date/Time: 08/20/24 23:28
Print Language: CAMEROONIAN
[2024-08-20 22:05] LABS: Troponin I < 0.012 ng/ml
== END 2024-08-20 23:28 | disposition home or self-care (01) ==
LOC: EMR 18:41
PROVIDERS: Physician Assistant; EMERGENCY PHYSICIAN Emergency Medicine; FAMILY PHYSICIAN Family Medicine
DX: R07.89 Other chest pain (principal); I10 Essential (primary) hypertension; K21.9 Gastro-esophageal reflux disease without esophagitis; F41.8 Other specified anxiety disorders; Z86.718 Personal history of other venous thrombosis and embolism; Z86.711 Personal history of pulmonary embolism; N40.0 Benign prostatic hyperplasia without lower urinary tract symptoms; G47.30 Sleep apnea, unspecified
CPT/HCPCS: 99283; 71046; 80053; 84484; 85025; 93005

== ENCOUNTER → 2024-11-01 13:57 | Outpatient (REF) | payer OTHER, SELFPAY | LOC: HWRCS 13:57 | PROVIDERS: ATTENDING PHYSICIAN Internal Medicine Critical Care Medicine; FAMILY PHYSICIAN Family Medicine; REFERRING PHYSICIAN Internal Medicine Cardiovascular Disease | DX: I27.20 Pulmonary hypertension, unspecified (principal) | CPT/HCPCS: 93306 ==

== ENCOUNTER → 2024-11-24 11:07 | Outpatient (REF) | payer OTHER, SELFPAY | LOC: RAD 11:07 | PROVIDERS: ATTENDING PHYSICIAN Internal Medicine Critical Care Medicine; FAMILY PHYSICIAN Family Medicine | DX: I27.20 Pulmonary hypertension, unspecified (principal) | CPT/HCPCS: 71046; 78582; A9540; A9567 ==

== ENCOUNTER → 2024-11-29 14:36 | Outpatient (REF) | payer OTHER, SELFPAY | LOC: RAD 14:36 | PROVIDERS: ATTENDING PHYSICIAN Internal Medicine; FAMILY PHYSICIAN Family Medicine | DX: I82.442 Acute embolism and thrombosis of left tibial vein (principal); I26.99 Other pulmonary embolism without acute cor pulmonale; R10.84 Generalized abdominal pain | CPT/HCPCS: 71260; 74177; Q9967 ==

== ENCOUNTER 2024-12-01 16:00 | Emergency (ER) | payer OTHER, SELFPAY ==
[2024-12-01] VITALS (7 sets, daily range): BP systolic 111–143; BP diastolic 60–83; BMI 28.3
[2024-12-01 16:34] LABS: % Basophils 1.2 % (0-2); % Eosinophils 4.2 % (0-6); % Immature Granulocytes 0.2 % (0-0.5); % Lymphocytes 32.3 % (20.5-51.1); % Monocytes 7.2 % (1.7-9.3); % Neutrophils 54.9 % (42.2-75.2); Absolute Basophils 0.1 10^3/uL (0-0.2); Absolute Eosinophils 0.2 10^3/uL (0-0.7); Absolute Lymphocytes 1.9 10^3/uL (1.2-3.4); Absolute Monocytes 0.4 10^3/uL (0.1-0.6); Absolute Neutrophils 3.2 10^3/uL (1.4-6.5); Hematocrit 48.4 % (39.0-52.0); Hemoglobin 16.3 g/dL (13.0-18.0); Mean Corp Hgb Conc. 33.7 g/dL (33.0-37.0); Mean Corpuscular Hgb 29.9 pg (27.0-31.0); Mean Corpuscular Volume 88.8 fL (80.0-94.0); Mean Platelet Volume 8.9 fL (7.4-10.4); Nucleated Red Blood Cells % 0 % (-); Platelet Count 179 10^3/uL (130-400); Red Blood Cell Count 5.45 10^6/uL (4.70-6.10); Red Cell Dist. Width 13.6 % (11.5-14.5); White Blood Cell Count 5.7 10^3/uL (4.8-10.8)
[2024-12-01 16:54] LABS: ALT (SGPT) 24 U/L (0-50); AST (SGOT) 23 U/L (17-59); Albumin 4.6 g/dl (3.5-5.0); Alkaline Phosphatase 60 U/L (38-126); Blood Urea Nitrogen 14 mg/dl (9-20); Calcium 9.6 mg/dl (8.4-10.2); Carbon Dioxide 25 mmol/L (22-30); Chloride 104 mmol/L (98-107); Glucose 86 mg/dl (70-99); Potassium 4.5 mmol/L (3.5-5.1); Sodium 138 mmol/L (135-145); Total Bilirubin 0.9 mg/dl (0.2-1.3); Total Protein 7.4 g/dl (6.3-8.2); eGFR > 60.00
[2024-12-01 16:59] LABS: Troponin I < 0.012 ng/ml
--- NOTE | 2024-12-01 17:26 | ED.GENMED ---
History of Present Illness
<JAJA Kaur Filed: 12/01/24 20:45>
General
Chief Complaint: Chest Pain
Source: patient
Exam Limitations: none
Time Seen by Provider: 12/01/24 17:21
Nursing documentation reviewed up to this point in time: agreed with
History of Present Illness
History of Present Illness:
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 This current episode today occurred
when he was sweeping snow outside. Patient states that he has had ongoing exercise intolerance for the past few months. Patient does take metoprolol for persistent sinus tachycardia. Patient reports that because of these ongoing episodes, he did
have a CAT scan of the chest and abdomen with IV contrast 2 days ago which was negative for PE. Because of his multiple PEs in the past, he does follow with Dr. De La Torre from cardiology. He denies any abdominal pain, nausea, vomiting.
Past History
<JAJA Kaur Filed: 12/01/24 20:45>
Past History
ED Past Medical History: Cancer (Skin), GERD, HTN, Psychiatric (Anxiety/depression), Other (Tachycardia on a beta shola, gout) and Other (DVT/Pulmonary embolus 1-1/2 years ago, recent B12 deficiency, BPH, Sleep apnea, DDD, Tremors right hand, TMJ)
ED Past Surgical History: Orthopedic (Right hammer toe) and Other (Anal stricture with sphincterotomy 1987, IVC fliter and then had removed, Hiatal hernia repaired, right eye surgery, ); Negative Cholecystectomy
Social History
Tobacco: Non-smoker
Alcohol: Occasional
Drug: None
Personal:
Living: with family
Employment: Employed
Family History
Family History: Other (Father with prostate cancer)
Review of Systems
<JAJA Kaur Filed: 12/01/24 20:45>
Review of Systems
All Other Systems: ROS reviewed and negative except as documented in HPI and ROS
Phy Exam
<Adrienne Landry PA-C - Last Filed: 12/01/24 20:45>
Physical Exam
Physical Exam:
General: Patient is well appearing and in no acute distress; non-toxic
Skin: Warm and dry, no rashes or lesions
Head: Normocephalic, atraumatic
Eyes: Sclera non-icteric. EOMs intact.
Cardiac: Regular rate and rhythm, no murmurs, no tenderness palpation of external chest
Peripheral Vascular: No lower extremity swelling or edema
Pulm: Normal respiratory effort, no wheezes, rales, or rhonchi
Abdomen: No abdominal tenderness to palpation no pulsatile abdominal mass
Neuro: CN II-XII intact, no focal neurologic deficits.
Psychiatric: Appropriate mood and affect.
Scores
<Adrienne Landry PA-C - Last Filed: 12/01/24 20:45>
Heart Score for Chest Pain Patients
STEMI patient?: No
History: Moderately Suspicious
ECG: Normal
Age: >45 - <65 years
Risk Factors: 1 or 2 Risk Factors
Troponin: </= Normal Limit
Heart Score for Chest Pain Patients: 3
Heart Score Risk: 2.5% MACE over next 6 weeks
<Bárbara Bonner MD - Last Filed: 12/02/24 13:28>
Heart Score for Chest Pain Patients
Heart Score for Chest Pain Patients: 3
Heart Score Risk: 2.5% MACE over next 6 weeks
Course
<Adrienne Landry PA-C - Last Filed: 12/01/24 20:45>
Orders/Labs/Results
Orders:
Orders
12/01/24 16:01
Electrocardiogram (*1) Urgent
Reason for Study: Chest Pain
EKG- Treatment ONCE
12/01/24 16:17
Complete Blood Count/With Diff Urgent
Comprehensive Metabolic Panel Urgent
Troponin I Urgent
12/01/24 17:23
EKG- Treatment ONCE
12/01/24 18:40
CR Chest - 2 Views Urgent
Comment:
Reason For Exam: right sided upper chest pain
12/01/24 18:44
Nitroglycerin Sublingual [Nitrostat (Sublingual)] 0.4 mg SL NOW STA
12/01/24 18:47
Troponin I Urgent
12/01/24 19:00
Electrocardiogram (*1) Urgent
Reason for Study: Chest Pain
12/01/24 16:17
12/01/24 16:17
Vital Signs
Initial and Last Documented VS:
Initial Vital Signs
Temp Pulse Resp BP Pulse Ox
98.1 F 105 18 143/83 98
12/01/24 16:05 12/01/24 16:05 12/01/24 16:05 12/01/24 16:05 12/01/24 16:05
Last Documented Vital Signs
Temp Pulse Resp BP Pulse Ox
98.1 F 76 27 130/62 98
12/01/24 16:05 12/01/24 20:15 12/01/24 20:15 12/01/24 20:00 12/01/24 20:48
<Bárbara Bonner MD - Last Filed: 12/02/24 13:28>
Orders/Labs/Results
Orders:
Orders
12/01/24 16:01
Electrocardiogram (*1) Urgent
Reason for Study: Chest Pain
EKG- Treatment ONCE
12/01/24 16:17
Complete Blood Count/With Diff Urgent
Comprehensive Metabolic Panel Urgent
Troponin I Urgent
12/01/24 17:23
EKG- Treatment ONCE
12/01/24 18:40
CR Chest - 2 Views Urgent
Comment:
Reason For Exam: right sided upper chest pain
12/01/24 18:44
Nitroglycerin Sublingual [Nitrostat (Sublingual)] 0.4 mg SL NOW STA
12/01/24 18:47
Troponin I Urgent
12/01/24 19:00
Electrocardiogram (*1) Urgent
Reason for Study: Chest Pain
12/01/24 16:17
12/01/24 16:17
Vital Signs
Initial and Last Documented VS:
Initial Vital Signs
Temp Pulse Resp BP Pulse Ox
98.1 F 105 18 143/83 98
12/01/24 16:05 12/01/24 16:05 12/01/24 16:05 12/01/24 16:05 12/01/24 16:05
Last Documented Vital Signs
Temp Pulse Resp BP Pulse Ox
98.1 F 76 27 130/62 98
12/01/24 16:05 12/01/24 20:15 12/01/24 20:15 12/01/24 20:00 12/01/24 20:48
Robertlt;Adrienne Landry PA-C - Last Filed: 12/01/24 20:45>
MDM/Problems Addressed
Differential Diagnosis Includes:
See below
MDM/Problems Addressed:
NUMBER AND COMPLEXITY OF PROBLEMS ADDRESSED AT THE ENCOUNTER
� Chronic conditions affecting care: Hypertension, hyperlipidemia, history of PEs
� Acute Exacerbation and/or Progression of Chronic Illness:
� Differential Diagnosis includes: ACS, PE, costochondritis, musculoskeletal sprain/strain
AMOUNT AND/OR COMPLEXITY OF DATA TO BE REVIEWED AND ANALYZED
� I performed an independent evaluation of and my interpretation is:
EKG: Normal sinus rhythm no ischemic changes x2
X-rays: No acute disease of the chest
Laboratory Studies: CBC and CMP unremarkable
Other:
� Review of other/old records: Reviewed ER physician documentation from 08/20/2024 patient seen for right sided chest pain that resolved giron unremarkable workup
� Clinical information was obtained by an independent historian: n/a
� Prescriptions/Medications Considered but not given: n/a
� Further testing considered but not performed: none
RISK OF COMPLICATIONS AND/OR MORBIDITY OR MORTALITY OF PATIENT MANAGEMENT
� Social determinants of health affecting care: none
� Discussion with other providers: ER attending
� Escalation of care including admission/observation vs risk of discharge considered:
59-year-old male with past medical history of PEs, sleep apnea, hypertension presents emergency department today with concerns of exertional chest pain shortness of breath. Patient reports that at this time most of his symptoms have resolved other
than right sided upper chest pain. I highly doubt PE as patient had normal chest CT with IV contrast 2 days ago and he is on Eliquis. He is also not tachycardic and not hypoxic here. He had to repeat EKGs and troponin which did not show signs of
ischemia. Story is concerning with exertional chest symptoms however doubt ACS in light of workup. Did make lead oxide mill tender on-call aware of case, did have shared decision-making discussion with patient, did offer admission, however we will instead
have him discharge as an outpatient with the chest pain hotline. Patient stable for discharge.
<Adrienne Landry PA-C - Last Filed: 12/01/24 20:45>
*Critical Care Note
Total Time (30-74mins, 75-104mins- exclusive of procedures): Not Applicable
ED Attending Note
<Adrienne Landry PA-C - Last Filed: 12/01/24 20:45>
-
Portions of this chart may have been created with voice recognition software.� Occasional wrong word or��sound alike� substitutions may have occurred due to the inherent limitations of voice recognition software.
<Bárbara Bonner MD - Last Filed: 12/02/24 13:28>
ED Attending Note
Patient seen and examined by attending physician: Yes
I performed the substantive portion of visit, reviewed & personally made and approve the management plan that is documented in note by myself or IVONNE.: Yes
ED Attending Note:
I have seen and evaluated the patient with a kiot-md-taad encounter. I have spoken to the [PA] and involved in the medical history, the physical exam, medical decision making.
Evaluation and management service: agree unless noted differently below.
Results interpretation: agree unless noted differently below.
59-year-old male with history of PE on Eliquis, sinus tachycardia on metoprolol presenting to the emergency department chest pain. Patient states that he was shoveling snow when he started develop right-sided chest pain. It is persistent. He does
state that it is a sharp pain to the right upper chest. He does state that he is having exertional chest pain before however it resolves with rest. This pain persisted and he had a car get that was not improving so he his lead oxide mill tender who advised
him to come to the emergency department for further evaluation. He states that he is compliant with his Eliquis. This does not feel similar to when he had his blood clot. He does state that 2 days ago he had a CT scan for swollen lymph nodes and
it showed no mass and no PE. On exam patient is resting comfortably. He does have a regular rate and rhythm and is in no respiratory distress. The chest pain is not reproducible. Concern for atypical ACS. Will check blood work. EKG per my
interpretation normal sinus rhythm. Will obtain x-ray and delta troponin. Will also trial nitroglycerin for the ongoing chest pain. Likely will touch base with cardiology if the chest pain is ongoing/elevated troponin. Anticipate discharge if
pain improves/normal troponin
Discharge Plan
Departure
Patient Disposition: Home (Routine Discharge)
Date of Disposition: 12/01/24
Time of Disposition: 20:33
Patient with high blood pressure during this ER visit?: Yes
Condition: Good
Discharge Problem:
Chest pain
Instructions: Chest Pain DCA Follow Up, BLOOD PRESSURE
Prescriptions:
No Action
Eliquis 5 MG tablet
5 mg PO BID
metoprolol tartrate 25 MG tablet
25 mg PO BID
mometasone [Nasonex] 17 GM spray,non-aerosol
2 spray intranasal HS
armodafinil [Nuvigil] 150 MG tablet
150 mg PO DAILY
tamsulosin 0.4 MG capsule
0.4 mg PO DAILY
allopurinol 100 MG tablet
300 mg PO DAILY
Tums:
1,000 mg PO PRN PRN (Reason: acid reflux )
Metamucil Fiber Singles 1 PACKET powder in packet
1 packet PO BID
sucralfate [Carafate] 1 GM tablet
1 gm PO BID
colchicine 0.6 MG capsule
0.6 mg PO DAILY
cyanocobalamin (vitamin B-12) 1,000 MCG tablet
1,000 mcg PO DAILY
zinc gluconate 50 MG tablet
50 mg PO DAILY
docosahexaenoic acid-epa 1 CAP capsule
3 cap PO DAILY
Centrum Silver 1 EACH tablet
1 ea PO DAILY
calcium citrate-vitamin D3 [Citracal + D Maximum] 1 EACH tablet
1 ea PO BID
coenzyme Q10 50 MG tablet,chewable
100 mg PO DAILY
guaifenesin [Mucinex] 600 MG tablet extended release 12hr
600 mg PO DAILY
ascorbic acid (vitamin C) 500 MG capsule
500 mg PO BID
Cholecalciferol (Vitamin D3) [Vitamin D3] 50 MCG Capsule
50 mcg PO BID
D-Ribose
7 g PO DAILY
Daily Probiotic
2 cap PO BID
Essential [place]
4.7 g PO DAILY
Luiz Tart Gomes Capsule
1 cap PO BID
[place] Super Beets
5 g PO DAILY
Lectin Shield
2 cap PO BID
Total Restore
3 cap PO DAILY
Vital Reds Antioxidant Powder
3.8 g PO DAILY
acetaminophen 325 MG tablet
650 mg PO Q4HPRN PRN (Reason: mild pain) Qty: 1 0RF
ibuprofen 200 MG tablet
400 - 600 mg PO Q6HPRN PRN (Reason: moderate pain) Qty: 1 0RF
oxycodone 5 MG tablet
5 mg PO Q4HPRN PRN (Reason: breakthrough/severe pain) Qty: 15 0RF
famotidine 20 mg Tablet
20 mg PO DAILY
simethicone 80 mg Tablet,Chewable
50 mg PO ACHS
Referrals:
Chau Reese DO [Family Provider] -
Activity Restrictions/Additional Instructions:
PLEASE RETURN TO THE ER SHOULD YOU DEVELOP AN ACUTE WORSENING OF YOUR PAIN, COUGHING UP OF BLOOD, FAINTING SPELLS, INTRACTABLE NAUSEA OR VOMITING, DIZZINESS, LIGHTHEADEDNESS, OR ANY OTHER SIGNS OR SYMPTOMS WORRISOME TO YOU.
Please avoid all strenuous activity and take it easy until you see cardiology.
Please follow-up with your primary care provider.
Interventions
Interventions:
*Risk Screen - Suicide Last Done: 12/01/24 16:05
*General Assessment Last Done: 12/01/24 16:05
*Neglect/Abuse Screening Last Done: 12/01/24 16:05
ED- Fall Risk Assessment Last Done: 12/01/24 20:48
*ED COVID-19 Vaccine History Last Done: 12/01/24 17:56
*Nursing Disposition Last Done: 12/01/24 20:48
ED- Cardiac Assessment Last Done: 12/01/24 19:06
Discharge Date and Time
Discharge Date/Time: 12/01/24 20:48
Print Language: SWAZI
[2024-12-01] MEDS: NITROSTAT (SUBLINGUAL) 0.4 MG SL (18:50)
[2024-12-01 19:25] LABS: Troponin I < 0.012 ng/ml
== END 2024-12-01 20:48 | disposition home or self-care (01) ==
LOC: EMR 16:00
PROVIDERS: Emergency Medicine; Physician Assistant; EMERGENCY PHYSICIAN Student in an Organized Health Care Education/Training Program; FAMILY PHYSICIAN Family Medicine
DX: R07.89 Other chest pain (principal); I10 Essential (primary) hypertension; K21.9 Gastro-esophageal reflux disease without esophagitis; Z86.711 Personal history of pulmonary embolism
CPT/HCPCS: 99285; 71046; 80053; 84484; 85025; 93005

== ENCOUNTER → 2024-12-19 16:37 | Outpatient (REF) | payer OTHER, SELFPAY | LOC: HWRAD 16:37 | PROVIDERS: ATTENDING PHYSICIAN Family Medicine; REFERRING PHYSICIAN Internal Medicine Critical Care Medicine | DX: R05.1 Acute cough (principal) | CPT/HCPCS: 71046 ==

== ENCOUNTER → 2025-05-11 07:11 | Outpatient (REF) | payer OTHER, SELFPAY | LOC: HWRCS 07:11 | PROVIDERS: ATTENDING PHYSICIAN Internal Medicine Critical Care Medicine; FAMILY PHYSICIAN Family Medicine | DX: I27.20 Pulmonary hypertension, unspecified (principal) | CPT/HCPCS: 93306 ==

== ENCOUNTER 2025-09-02 21:53 | Emergency (ER) | payer BC, SELFPAY ==
[2025-09-02 21:58] VITALS: BP 157/75
[2025-09-02 22:18] VITALS: BMI 33.7
[2025-09-02 22:35] VITALS: BP 136/79
[2025-09-02 23:00] VITALS: BP 133/78
[2025-09-02 23:17] LABS: Hematocrit 43.9 % (39.0-52.0); Hemoglobin 14.3 g/dL (13.0-18.0); Mean Corp Hgb Conc. 32.6 g/dL (33.0-37.0); Mean Corpuscular Volume 92.4 fL (80.0-94.0); Nucleated Red Blood Cells % 0 % (-); Platelet Count 180 10^3/uL (130-400); Red Cell Dist. Width 13.7 % (11.5-14.5)
[2025-09-02 23:28] LABS: INR 1.10; PT 14.5 Sec (11.4-14.6)
[2025-09-02 23:29] LABS: APTT 27.0 Sec (23.4-35.0)
[2025-09-02 23:40] LABS: ALT (SGPT) 54 U/L (0-50); AST (SGOT) 32 U/L (17-59); Albumin 4.1 g/dl (3.5-5.0); Alkaline Phosphatase 61 U/L (38-126); Blood Urea Nitrogen 21 mg/dl (9-20); Calcium 9.3 mg/dl (8.4-10.2); Carbon Dioxide 23 mmol/L (22-30); Chloride 112 mmol/L (98-107); Estimated Creatinine Clearance 113 ml/min; Glucose 101 mg/dl (70-99); Magnesium 1.9 mg/dl (1.6-2.3); Potassium 4.6 mmol/L (3.5-5.1); Sodium 142 mmol/L (135-145); Total Protein 6.9 g/dl (6.3-8.2); eGFR > 60.00
[2025-09-02 23:52] LABS: Troponin I < 0.012 ng/ml
[2025-09-03] VITALS: BP 133/80
[2025-09-03 00:10] LABS: TSH 2.13 uIU/ml (0.47-4.68)
[2025-09-03 01:05] VITALS: BP 128/70
--- NOTE | 2025-09-03 01:22 | ED.GENMED ---
History of Present Illness
General
Chief Complaint: Chest Pain
Source: patient
Time Seen by Provider: 09/02/25 22:20
Nursing documentation reviewed up to this point in time: agreed with
History of Present Illness
History of Present Illness:
Note:
CHIEF COMPLAINT(S)
Chest pain on the left side, burning tongue sensation.
HISTORY OF PRESENT ILLNESS
The patient is a 60-year-old male presenting with chest pain primarily localized around the left breast and under the left arm for the past couple of days. Initially, the pain started months ago in the upper right chest before it transitioned to the
left side. The patient describes the pain as similar to a pulled muscle, with distinct sensitive spots upon palpation. He reports no shortness of breath, other than occasional exertional dyspnea when climbing stairs, which is not new to him.
The patient states, 'It used to only hurt at night,' and notes that he now experiences pain continuously throughout the day despite taking gabapentin, which was initially prescribed by a [employer] dealer for nighttime relief. The patient also reports
a burning sensation on his tongue, observing an orange discoloration when viewed in a mirror.
PAST MEDICAL AND SURIGICAL HISTORY
The patient has a history of gout diagnosed four years ago, with gout initially presenting in the knees and following dietary triggers commonly associated with gout. He also has a history of pulmonary embolisms, with two occurrences in 2018, for
which he is on long-term anticoagulation therapy with apixaban (Eliquis).
MEDICATIONS
The patient is currently on gabapentin for pain management, allopurinol for gout, and apixaban 5 mg twice daily for a history of pulmonary embolism.
SOCIAL HISTORY
The patient reports no smoking history and consumes alcohol occasionally.
PHYSICAL EXAM
General: Alert, no acute distress.
Skin: Warm, dry.
Head: Normocephalic, atraumatic.
Neck: Supple, trachea midline.
Eye Ears, nose, mouth and throat: Oral mucosa moist, tongue reported as having a burning sensation with orange discoloration.
Cardiovascular: Normal peripheral perfusion, no edema.
Respiratory: Respirations are non-labored.
Gastrointestinal: Abdomen nondistended.
Back: Normal range of motion, normal alignment.
Musculoskeletal: Normal ROM, normal strength.
Neurological: Alert and oriented to person, place, time, and situation, no focal neurological deficit observed.
Psychiatric: Cooperative, appropriate mood & affect.
PLAN
A computed tomography (CT) scan is planned to further investigate the chest pain and rule out any possible complications related to his previous history of pulmonary embolism. Continued management with current medications, including gabapentin and
allopurinol. The patient will be monitored for any changes or progression of symptoms.
DIFFERENTIAL DIAGNOSIS
The Differential Diagnosis includes, in no particular order and is not limited to:
1. Musculoskeletal chest pain.
2. Costochondritis.
3. Cardiac chest pain (non-ischemic).
4. Gastroesophageal reflux disease (GERD).
5. Pulmonary embolism. Not seen on CT
6. Gout flare with unusual presentation.
7. Neuropathic pain.
8. Herpes Zoster (shingles). No rash evident
9. Anxiety-related symptoms.
10. Lymphadenopathy-related discomfort.
EXTERNAL RECORDS REVIEWED
The patient mentioned having a previous cardiac positron emission tomography (PET) scan in March to investigate heart-related issues, which was reported as negative for arrhythmias. A computed tomography (CT) scan from November was also mentioned,
though it primarily focused on lymph nodes and other large structures. The patient communicates skepticism over the findings and their implications for current symptoms.
Disposition:
SUMMARY OF ENCOUNTER
The patient is a 60-year-old male who presented with chest pain. A CT scan of the chest was conducted to evaluate for pulmonary embolism (PE), which returned negative. Two troponin tests were also conducted, both of which were negative, indicating
no acute myocardial infarction. The patient was evaluated and monitored in the emergency department with a focus on ruling out serious conditions related to his chest pain.
DISPOSITION
The patient was discharged home.
ASSESSMENT
Chest pain, likely non-cardiac, given the negative CT chest for pulmonary embolism and negative troponin tests.
PLAN
The patient is advised to follow up with his primary care physician and cardiology for further evaluation and management of ongoing symptoms.
MEDICATION RECONCILIATION
No changes to existing medications as listed in the patients history.
MEDICAL DECISION MAKING
-Complexity of Data Reviewed: Chronic conditions affecting care including history of gout and pulmonary embolism. Differential diagnoses considered include musculoskeletal chest pain, costochondritis, cardiac chest pain (non-ischemic),
gastroesophageal reflux disease (GERD), pulmonary embolism, gout flare with unusual presentation, neuropathic pain, herpes zoster (shingles), anxiety-related symptoms, and lymphadenopathy-related discomfort.
-Data:
Category 1
External record reviewed: Previous CT scan and cardiac PET scan were reviewed.
Category 2
My independent interpretation of a chest CT scan shows no evidence of pulmonary embolism.
-Risk:
Consideration of Admission/Observation: Escalation of care including admission/observation was considered given the complexity and risk of the patients presenting complaint, exam findings, and/or their underlying comorbidities. However, ultimately I
feel the patient is safe for outpatient management with close follow up. Reasoning: Work-up reassuring, does not reveal any acute life/organ threatening processes, patients symptoms well controlled upon reevaluation, reexamination is reassuring,
vitals are stable, patient agreeable with discharge, reliable for follow-up.
DIAGNOSIS
Chest pain, unspecified - R07.9
Pulmonary embolism, ruled out - Z86.711
Past History
Past History
ED Past Medical History: Cancer (Skin), GERD, HTN, Psychiatric (Anxiety/depression), Other (Tachycardia on a beta shola, gout) and Other (DVT/Pulmonary embolus 1-1/2 years ago, recent B12 deficiency, BPH, Sleep apnea, DDD, Tremors right hand, TMJ)
ED Past Surgical History: Orthopedic (Right hammer toe) and Other (Anal stricture with sphincterotomy 1987, IVC fliter and then had removed, Hiatal hernia repaired, right eye surgery, ); Negative Cholecystectomy
Social History
Tobacco: Non-smoker
Alcohol: Occasional
Drug: None
Personal:
Living: with family
Employment: Employed
Family History
Family History: Other (Father with prostate cancer)
Phy Exam
Physical Exam
Physical Exam:
.
Scores
Heart Score for Chest Pain Patients
STEMI patient?: Not applicable
Course
Orders/Labs/Results
Orders:
Orders
09/02/25 21:54
EKG [Electrocardiogram (*1)] Urgent
Reason for Study: Chest Pain
EKG- Treatment ONCE
09/02/25 23:07
Complete Blood Count/With Diff Urgent
Comprehensive Metabolic Panel Urgent
Magnesium Urgent
PTT Urgent
Prothrombin Time Urgent
TSH Urgent
Troponin I Urgent
09/03/25 00:01
CT Chest PE Study Urgent
Reason For Exam: hx of PE, cp
09/03/25 01:25
Electrocardiogram (*1) Urgent
Reason for Study: Chest Pain
EKG- Treatment ONCE
09/03/25 01:33
Troponin I Urgent
Abnormal Lab Results
09/02/25
23:07
MCHC 32.6 L g/dL
(33.0-37.0)
Chloride 112 H mmol/L
(98-107)
BUN 21 H mg/dl
(9-20)
Glucose 101 H mg/dl
(70-99)
ALT 54 H U/L
(0-50)
09/02/25 23:07
09/02/25 23:07
Vital Signs
Initial and Last Documented VS:
Initial Vital Signs
Temp Pulse Resp BP Pulse Ox
98.1 F 76 16 157/75 98
09/02/25 21:58 09/02/25 21:58 09/02/25 21:58 09/02/25 21:58 09/02/25 21:58
Last Documented Vital Signs
Temp Pulse Resp BP Pulse Ox
98.1 F 63 18 126/67 98
09/02/25 21:58 09/03/25 02:15 09/03/25 02:15 09/03/25 02:00 09/03/25 02:15
*Radiology
Radiology exam reviewed: radiology read reviewed
*Pulse Oximetry
SaO2: 97
Oxygen Mode of Delivery: Room air
Patient hypoxic: no
*Critical Care Note
Total Time (30-74mins, 75-104mins- exclusive of procedures): Not Applicable
Update Note
Update Note:
NAME: LAQUITA LAO
DATE OF EXAM: 09/03/2025
Patient No: [id number]
Physician: ELINOR
Date of : 1965
Past Medical History (entered by Technologist):
Reason For Exam (entered by Technologist):
Other Notes (entered by Technologist): Pt reports 3 days of chest pain, burning sensation in his tongue x 1 week. +eliquis from PE's (). Denies SOB, deies trauma.
Prior sent
Additional Information (per [facility] Radiologist):
CTA chest with intravenous contrast, pulmonary artery protocol
Comparison exam: CT chest 11/29/2024
IMPRESSION:
No evidence of acute pulmonary artery embolus. 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 This is similar to prior
study.
No consolidation, effusion, or pneumothorax.
Minimal atelectasis.
1.1 cm nodule off the left thyroid lower pole, similar to prior exam.
Fundoplication changes noted at the stomach.
Partially imaged cyst right kidney.
Mild degenerative changes spine.
Case finalized on 09/03/25 01:14 EST
Yi Puckett M.D.
This report has been electronically signed and verified by the Radiologist whose name is printed above.
ED Attending Note
-
Portions of this chart may have been created with voice recognition software.� Occasional wrong word or��sound alike� substitutions may have occurred due to the inherent limitations of voice recognition software.
Discharge Plan
Departure
Patient Disposition: Home (Routine Discharge)
Date of Disposition: 09/03/25
Time of Disposition: 02:21
Patient with high blood pressure during this ER visit?: Yes
Discharge Problem:
Chest pain
Instructions: Chest Pain CBC Follow Up, BLOOD PRESSURE
Prescriptions:
No Action
Eliquis 5 MG tablet
5 mg PO BID
metoprolol tartrate 25 MG tablet
25 mg PO BID
mometasone [Nasonex] 17 GM spray,non-aerosol
2 spray intranasal HS
armodafinil [Nuvigil] 150 MG tablet
150 mg PO DAILY
tamsulosin 0.4 MG capsule
0.4 mg PO DAILY
allopurinol 100 MG tablet
300 mg PO DAILY
Tums:
1,000 mg PO PRN PRN (Reason: acid reflux )
Metamucil Fiber (aspartame) 1 PACKET powder in packet
1 packet PO BID
sucralfate [Carafate] 1 GM tablet
1 gm PO BID
colchicine 0.6 MG capsule
0.6 mg PO DAILY
cyanocobalamin (vitamin B-12) 1,000 MCG tablet
1,000 mcg PO DAILY
zinc gluconate 50 MG tablet
50 mg PO DAILY
docosahexaenoic acid-epa 1 CAP capsule
3 cap PO DAILY
Centrum Silver 1 EACH tablet
1 ea PO DAILY
calcium citrate-vitamin D3 [Citracal + D Maximum] 1 EACH tablet
1 ea PO BID
coenzyme Q10 50 MG tablet,chewable
100 mg PO DAILY
guaifenesin [Mucinex] 600 MG tablet extended release 12hr
600 mg PO DAILY
ascorbic acid (vitamin C) 500 MG capsule
500 mg PO BID
Cholecalciferol (Vitamin D3) [Vitamin D3] 50 MCG Capsule
50 mcg PO BID
D-Ribose
7 g PO DAILY
Daily Probiotic
2 cap PO BID
Essential Woodson
4.7 g PO DAILY
Luiz Tart Gomes Capsule
1 cap PO BID
Humann Super Beets
5 g PO DAILY
Lectin Shield
2 cap PO BID
Total Restore
3 cap PO DAILY
Vital Reds Antioxidant Powder
3.8 g PO DAILY
acetaminophen 325 MG tablet
650 mg PO Q4HPRN PRN (Reason: mild pain) Qty: 1 0RF
ibuprofen 200 MG tablet
400 - 600 mg PO Q6HPRN PRN (Reason: moderate pain) Qty: 1 0RF
oxycodone 5 MG tablet
5 mg PO Q4HPRN PRN (Reason: breakthrough/severe pain) Qty: 15 0RF
famotidine 20 mg Tablet
20 mg PO DAILY
simethicone 80 mg Tablet,Chewable
50 mg PO ACHS
Referrals:
Chau Reese DO [Family Provider, Family Practice]
Activity Restrictions/Additional Instructions:
Thank You for choosing [facility].
It was a pleasure meeting you and taking part in your care. We hope for your continued healing and wellness.
Please read discharge instructions in their entirety. However, they are for general education and may not describe your exact diagnosis at discharge. Information on your ER visit and medical conditions were discussed with you along with appropriate
follow up information...
If indicated, please take your medications as instructed and indicated on discharge paperwork.
Please schedule a follow up appointment as directed. Call to schedule an appointment
Please return to the emergency department with ANY change in, persisting, or worsening of symptoms. If any of your symptoms do not improve, or persist, or become more severe within 6-12 hours, please return to the emergency department for further
care.
Please return to the emergency department if you develop a headache, neck pain/stiffness, fever greater than 100.4F, chest pain, shortness of breath, persistent nausea, vomiting, slurred speech, difficulty walking, numbness/tingling, weakness, signs
of infection or any other symptoms that are worrisome to you.
If you have any questions or concerns please do not hesitate to call the Hospital at .
Interventions
Interventions:
*Risk Screen - Suicide Last Done: 09/02/25 21:58
*General Assessment Last Done: 09/02/25 22:18
*Neglect/Abuse Screening Last Done: 09/02/25 21:58
*ED- Fall Risk Assessment Last Done: 09/02/25 22:18
*ED COVID-19 Vaccine History Last Done: 09/02/25 22:18
*ED Influenza Vaccine History Last Done: 09/02/25 22:18
*Nursing Disposition Last Done: 09/03/25 02:27
ED- Cardiac Assessment Last Done: 09/02/25 22:18
Discharge Date and Time
Discharge Date/Time: 09/03/25 02:35
Print Language: YAKUT
[2025-09-03 02:00] VITALS: BP 126/67
[2025-09-03 02:18] LABS: Troponin I < 0.012 ng/ml
== END 2025-09-03 02:35 | disposition home or self-care (01) ==
LOC: EMR 21:53
PROVIDERS: EMERGENCY PHYSICIAN Student in an Organized Health Care Education/Training Program; FAMILY PHYSICIAN Family Medicine
DX: R07.9 Chest pain, unspecified (principal); I10 Essential (primary) hypertension; N40.0 Benign prostatic hyperplasia without lower urinary tract symptoms; Z86.711 Personal history of pulmonary embolism; Z86.718 Personal history of other venous thrombosis and embolism; Z79.01 Long term (current) use of anticoagulants; Z90.49 Acquired absence of other specified parts of digestive tract
CPT/HCPCS: 99284; 71275; 80053; 83735; 84443; 84484; 85025; 85610; 85730; 93005; Q9967

== ENCOUNTER → 2025-10-08 09:57 | Outpatient (REF) | payer BC, SELFPAY | LOC: WDC 09:57 | PROVIDERS: ATTENDING PHYSICIAN Family Medicine | DX: N63.25 Unspecified lump in the left breast, overlapping quadrants (principal) | CPT/HCPCS: 76642; 77062; 77066 ==